=== PATIENT | male | born 2000 | race Caucasian/White ===

== ENCOUNTER 2025-05-08 14:17 | Emergency (ER) | payer OTHER, SELFPAY ==
[2025-05-08 14:34] VITALS: BP 147/94; PULSE 89; RESP 16; TEMP 36.9; O2SAT 100
--- NOTE | 2025-05-08 14:35 | ED_ITS ---
HPI - Skin/Abscess/Foreign Bdy General Chief complaint: Skin/Abscess/Foreign Body Stated complaint: Rash/Sore Throat/Body aches Source: patient Mode of arrival: ambulatory Limitations: no limitations History of Present Illness HPI narrative: Patient is a 24-year-old man who presents to the clinic with complaints of a sore throat and a rash to his hands, feet, and face x 3 days. He states that he was on a wedding over the weekend and around a lot of people. He has not been taking anything [id number]. Denies any fevers, chills body aches, nausea, vomiting, or diarrhea. Review of Systems Review of Systems: CONSTITUTIONAL: Denies body aches, fever, chills, or sweats. EYES: Denies visual changes, redness, or discharge. ENT: Reports sore throat. Denies rhinorrhea, congestion, or otalgia. CARDIOVASCULAR: Denies chest pain, palpitations, or edema. RESPIRATORY: Denies dyspnea. GASTROINTESTINAL: Denies abdominal pain, nausea, vomiting, or diarrhea. SKIN: Reports a rash to hand,mouth, and face. NEUROLOGIC: Denies headache All systems reviewed & are unremarkable except as noted in HPI and below PMFSH Comments At time of signature, I have reviewed and agree with nursing past medical, surgical, social and family history unless otherwise noted. Please see nursing chart for further information. There is no relevant family history pertinent to the presenting complaint. Exam Narrative: GENERAL: Ill-appearing, ?no acute distress. EYES: ?conjunctivae clear ENT: Mucous membranes moist. TM pearly allen with normal light reflex francis aterally; no tragal tenderness. Oropharynx erythematous without lesions. Tonsils enlarged and without exudate. No drooling, no hoarseness, no trismus, uvula midline. No tripod positioning, hot potato voice, or soft palate swelling. NECK: Supple. No lymphadenopathy CHEST: Clear to auscultation, breath sounds equal. ?No respiratory distress, speaks in full sentences. HEART: Regular rate and rhythm. No murmur heard. SKIN: Warm, dry, Erythemic raised papules noted to face, feet, and hands. NEURO: Alert and oriented x3.? Course Course Level of Care: Express Care Visit Vital Signs Vital signs: Vital Signs Temperature 98.5 F 05/08/25 14:34 Pulse Rate 89 05/08/25 14:34 Respiratory Rate 16 05/08/25 14:34 Blood Pressure 147/94 H 05/08/25 14:34 Pulse Oximetry 100 05/08/25 14:34 Temperature 98.5 F 05/08/25 14:34 Pulse Rate 89 05/08/25 14:34 Respiratory Rate 16 05/08/25 14:34 Blood Pressure 147/94 H 05/08/25 14:34 Pulse Oximetry 100 05/08/25 14:34 MDM - Skin/Abscess/Foreign Bdy MDM Narrative Medical decision making narrative: Discussed physical exam findings. Advised supportive measures and signs/symptoms to go to the ER. Pt is appropriate for outpatient treatment and follow up. Differential Diagnosis Differential diagnosis: Likely insect bites, impetigo, contact dermatitis and other ( Xmok-pseb-svl mouth disease , strep throat, allergies. ) Critical Care Time Critical Care Time Critical Care Time: No Discharge Plan Discharge Clinical Impression: Hand, foot and mouth disease, Acute sore throat Patient Disposition: Home Condition: Stable Instructions: Hand, Foot, and Mouth Disease (ED) Additional Instructions: The most important part of your care is follow up with Primary care provider. Take Claritin, Zyrtec, or Katy daily for the next 7 days for sore throat. Avoid hot showers, Take cool showers. Wash the area with gentle soap and water only. Use skin cream as prescribed to reduce itchiness Avoid scratching when possible to prevent worsening of the condition and disruption of the skin that could lead to bacterial infection To relieve itching, place a cool washcloth or some ice over the area that itches, rather than scratching Follow up with primary care provider or seek ER if you have trouble breathing, become hoarse, or start wheezing, develop belly cramps, vomiting or feel dizzy. Patient Language: Green[place]ic Follow-up/Referrals: PHYSICIAN,[employer] [Primary Care Provider] - Stand Alone Forms: Work/School Release IP
[2025-05-08 14:44] LABS: EDSTREPNEGPOS1 Negative (Negative)
== END 2025-05-08 15:00 | disposition home or self-care (01) ==
DX: B08.4 Enteroviral vesicular stomatitis with exanthem (principal); J02.9 Acute pharyngitis, unspecified
CPT/HCPCS: 87081; 87880; 99203; G0463